=== PATIENT | male | born 1950 | race Caucasian/White ===

== ENCOUNTER 2016-10-05 09:59 | Outpatient (CLI) | payer MEDICARE ==
[~2016-10-05] VITALS: Ht 182.9 cm; Wt 92.7 kg
--- NOTE | ~2016-10-05 | HEMODYNAMI ---
PATIENT:LÓPEZ SCHMIDT MEDICAL RECORD: [id number] : 54 LOCATION:DM[facility]I ADMISSION DATE: 10/05/16 Generatedon:10/05/201613:19 Patient name: LÓPEZ SCHMIDT Patient #: [id number] SSN: [id number] : 1950 Date of study: 10/05/2016 Page: Of Hemodynamic Procedure Report Patient Data Patient Demographics Procedure consent was obtained First Name: LÓPEZ Gender: Male Last Name: ROXANA : 1950 [facility] Initial: AGGIE Age: 66 year(s) Patient #: [id number] Race: SSN: [id number] Additional ID: [id number] Contact details [address]: [address] [place] [address] State: [place] City: [place] Zip code: [address] Past Medical History Allergies: No known allergies Admission Admission Data Admission Date: 10/05/2016 Admission Time: 9:59 Arrival Date: 10/05/2016 Arrival Time: 12:00 Admit Source: Other Insurance Payor: Private health insurance Height (in.): 72 BSA: 2.15 (m2) Height (cm.): 182.88 BMI: 27.67 (kg/m2) Weight (lbs.): 204 Weight (kg.): 92.53 Lab Results Lab Result Date: 10/05/2016 Lab Result Time: 0:00 Biochemistry Name Units Result Min Max BUN mg/dl 15 --(--*-)-- 7 18 Creatinine mg/dl 1.1 --(--*-)-- 0.6 1.3 CBC Name Units Result Min Max Hemoglobin g/dl 16.8 --(---*)-- 13.5 17.5 Procedure Procedure Types Cath Procedure Diagnostic Procedure LHC LHC w/Coronaries w/Grafts PCI Procedure Coronary Stent Initial Procedure Description Procedure Date Procedure Date: 10/05/2016 Procedure Start Time: 13:03 Procedure End Time: 13:18 Procedure Staff Name Function Bryan Ovalle MD Performing Physician Alem Cobb RT Scrub Denisse Mason RN Nurse Mathieu Peña RT Monitor Markel Barraza RT Electrical Systems Drafter Procedure Data Cath Procedure Fluoroscopy Diagnostic fluoroscopy Total fluoroscopy Time: 3.6 time: 3.6 min min Diagnostic fluoroscopy Total fluoroscopy dose: 605 dose: 605 mGy mGy Contrast Material Contrast Material Type Amount (ml) Isovue 300 83 Entry Location Entry Primary Successful Side Size Upsize Upsize Entry Closure Succes sful Closure Location (Fr) 1 (Fr) 2 (Fr) Remarks Device Remarks Femoral Right 6 Fr Vascade artery Short Closure System Diagnostic catheters Device Type Used For End Catheter Placement Cordis 5Fr Pigtail LV Angiography Catheter (MP) Cordis 5Fr JL 4.0 Left Coronary Catheter (MP) Angiography Cordis 5Fr 3DRC Catheter SVG Angiography (MP) Cordis Infinity 5Fr AR 2 SVG Angiography MOD catheter Procedure Complications No complications Procedure Medications Medication Administration Route Dosage Oxygen NC 2 l/min Heparin Flush Bag added to field 2 bags (1000units/500ml NS) Lidocaine 2% added to field 20 Benadryl I.V. 50 mg Heparin Bolus I.V. 4000 units Versed I.V. 1 mg Fentanyl I.V. 50 mcg Versed I.V. 1 mg Fentanyl I.V. 50 mcg Versed I.V. 1 mg Fentanyl I.V. 50 mcg Versed I.V. 1 mg Fentanyl I.V. 50 mcg Versed I.V. 1 mg Hemodynamics Rest BSA: 2.15 (m2) HGB: 16.8 (g/dl) O2 Consumption: Estimated: 264.6 (ml/min) O2 Con sumption indexed: Estimated:123.07 (ml/min/m) Heart Rate: 87 (bpm) Snapshots Pre Cath Intra NCS Post Cath Vital Signs Time Heart Resp SPO2 NIBP Rhythm Pain Sedation Rate (ipm) (%) (mmHg) Status Level (bpm) 12:21:06 84 18 99 121/74(86) NSR 0 (11) 10(A) , No pain 12:25:16 59 20 99 115/67(80) NSR 0 (11) 10(A) , No pain 12:29:26 58 25 99 108/64(77) NSR 0 (11) 10(A) , No pain 12:33:33 66 23 99 103/61(74) NSR 0 (11) 10(A) , No pain 12:37:37 54 16 100 114/67(83) NSR 0 (11) 10(A) , No pain 12:41:47 55 18 98 113/60(78) NSR 0 (11) 10(A) , No pain 12:45:55 54 22 97 104/66(83) NSR 0 (11) 10(A) , No pain 12:50:00 64 22 97 94/58(74) NSR 0 (11) 10(A) , No pain 12:54:08 49 23 99 115/54(87) NSR 0 (11) 10(A) , No pain 12:58:18 63 21 96 100/62(76) NSR 0 (11) 10(A) , No pain 13:02:24 52 16 96 90/56(69) NSR 0 (11) 10(A) , No pain 13:06:28 58 16 97 104/62(85) NSR 0 (11) 10(A) , No pain 13:10:36 55 18 96 106/58(76) NSR 0 (11) 10(A) , No pain 13:14:17 82 17 96 100/57(75) NSR 0 (11) 10(A) , No pain 13:18:23 52 20 93 106/57(79) NSR 0 (11) 10(A) , No pain Medications Time Medication Route Dose Verified Delivered Reason Notes Effectiveness by by 12:20:58 Oxygen NC 2 Bryan Denisse Per physician l/min Yamile Mason RN 12:21:05 Heparin Flush added 2 Bryan Adams for local Bag to bags Yamile Ovalle MD anesthetic (1000units/500ml field NS) 12:21:12 Lidocaine 2% added 20ml Bryan Adams used for to vial Yamile Ovalle MD procedure field 12:21:19 Benadryl I.V. 50 mg Bryan Denisse Per physician Yamile Mason RN 13:01:42 Versed I.V. 1 mg Bryan Denisse for sedation Yamile Mason RN 13:01:43 Fentanyl I.V. 50 Bryan Denisse for sedation mcg Yamile Mason RN 13:03:16 Versed I.V. 1 mg Bryan Denisse for sedation Yamile Mason RN 13:03:24 Fentanyl I.V. 50 Bryan Denisse for sedation mcg Yamile Mason RN 13:05:31 Versed I.V. 1 mg Bryan Denisse for sedation Yamile Mason RN 13:05:35 Fentanyl I.V. 50 Bryan Denisse for sedation mcg Yamile Mason RN 13:07:42 Versed I.V. 1 mg Bryan Denisse for sedation Yamile Mason RN 13:07:54 Fentanyl I.V. 50 Bryan Denisse for sedation mcg Yamile Mason RN 13:09:05 Versed I.V. 1 mg Bryan Denisse for sedation Yamile Mason RN 13:10:09 Heparin Bolus I.V. 4000 Bryan Denisse for dose units Yamile Mason RN anticoagulation verified with dr ovalle Procedure Log Time Note 11:30:29 Markel Barraza RT(R) sent for patient. Start room use. 11:35:20 ACC Patient presents with Unstable Angina CCS Anginal Class 2--Slight limitation of ordinary activity. 11:35:27 Diagnostic Cath status Urgent 11:35:35 Time tracking: Regular hours 11:35:40 Plan of Care:Hemodynamics will remain stable., Cardiac rhythm will remain stable., Comfort level will be maintained., Respiratory function will remain adequate., Patient/ family verbilizes understanding of procedure., Procedure tolerated without complication., Recovers from procedure without complications.. 11:36:36 Patient allergic to No known allergies 11:42:31 Informed consent obtained and on chart 11:44:32 Arrival Date: 10/05/2016 12:00:00 PM 11:44:37 Admit Source: Other 11:44:40 Insurance Payor : Private health insurance 11:45:13 Patient Height : 182.88 cm 11:45:17 Patient Weight : 92.53 kg 12:15:35 Patient received from Outpatients to CCL 2 Alert and oriented. Tansferred to table in Supine position. 12:15:36 Warm blankets applied, and larry hugger turned on for patient comfort. 12:15:37 Correct patient and procedure confirmed by team. 12:15:37 ECG and BP/O2 sat monitors applied to patient. 12:18:10 H&P Date Dictated: 09/28/2016 Within 30 days and on chart., H&P Addendum completed by physician on day of procedure. (MUST COMPLETE FOR ALL OUTPATIENTS). 12:18:12 Pre-procedure instructions explained to patient. 12:18:12 Pre-op teaching completed and patient verbalized understanding. 12:18:15 Family in waiting room. 12:18:19 Patient NPO since Midnight. 12:18:21 Is the patient allergic to Iodine/contrast media? No. 12:18:23 Is patient on blood thinner?Yes 12:18:26 ACC The patient was administered the following blood thiners within the last 24 hours: ACCPlavix 12:18:28 Patient diabetic? No. 12:18:30 Previous problem with sedation/anesthesia? No ? 12:18:34 Snore? No 12:18:36 Sleep apnea? No 12:18:37 Deviated septum? No 12:18:37 Opens mouth fully? Yes 12:18:38 Sticks out tongue? Yes 12:18:40 Airway obstruction? No ? 12:18:43 Dentures? No ? 12:18:46 Pre procedure: right dorsailis pedis pulse 1+ Palpable, but thready & weak; easily obliterated 12:18:48 Patient pain scale 0/10 ?. 12:18:56 IV patent on arrival in left forearm with 0.9% NaCl at [facility]. 12:19:01 Lab results completed and on chart. 12:19:13 Right groin area was prepped with chlora-prep and draped in sterile fashion 12:19:19 Alarms reviewed by R. N. 12:19:19 Sharps counted by scrub and verified by R.N. 12:19:27 Use device set Femoral Dx 12:19:28 Tegaderm 4 x 4 opened to sterile field. 12:19:32 Acist Hand Control opened to sterile field. 12:19:32 Acist Manifold opened to sterile field. 12:19:33 Acist Syringe opened to sterile field. 12:19:34 Bag Decanter opened to sterile field. 12:19:34 Cardinal Cath Pack opened to sterile field. 12:19:35 St Tray 260cm J .035 wire opened to sterile field. 12:19:36 Cordis Infinity 5Fr Multipack catheter opened to sterile field. 12:19:44 Terumo 6Fr Clayton Sheath opened to sterile field. 12:19:59 Vital chart was started 12:20:00 Baseline sample Acquired. 12:20:04 Rhythm: sinus rhythm 12:20:08 Baseline sample Acquired. 12:20:51 Full Disclosure recording started 12:20:58 Oxygen 2 l/min NC was given by Denisse Mason RN; Per physician; 12:21:05 Heparin Flush Bag (1000units/500ml NS) 2 bags added to field was given by Bryan Ovalle MD; for local anesthetic; 12::12 Lidocaine 2% 20ml vial added to field was given by Bryan Ovalle MD; used for procedure; 12::19 Benadryl 50 mg I.V. was given by Denisse Mason RN; Per physician; 12::06 Lab Result : BUN 15 mg/dl 12::06 Lab Result : Creatinine 1.1 mg/dl 12:22:06 Lab Result : Hemoglobin 16.8 g/dl 12:30:57 Zero performed for pressure channel P1 13:01:40 --------ALL STOP TIME OUT------ 13:01:40 Final Timeout: patient, procedure, and site verified with staff and physician. All members of the team are in agreement. 13:01:42 Versed 1 mg I.V. was given by Denisse Mason RN; for sedation; 13:01:42 Right groin site verified by team. 13:01:43 Fentanyl 50 mcg I.V. was given by Denisse Mason RN; for sedation; 13:01:46 Physical assessment completed. ASA score P 2 - A patient with mild systemic disease as per Bryan Ovalle MD. 13:01:49 Sedation plan: IV Moderate Sedation Versed, Fentanyl 13:03:04 Procedure started. 13:03:16 Versed 1 mg I.V. was given by Denisse Mason RN; for sedation; 13:03:18 Local anesthetic to right femoral artery with Lidocaine 2% by Bryan Ovalle MD.INITIAL ACCESS ONLY 13:03:24 Fentanyl 50 mcg I.V. was given by Denisse Mason RN; for sedation; 13:03:26 A 6 Fr Short sheath was inserted into the Right Femoral artery 13:04:08 A Cordis 5Fr Pigtail Catheter (MP) was advanced over the wire and used for LV Angiography. 13:04:10 LV angiography performed. 13:04:12 LV gram done using ALVAREZ 13:04:25 EF : 40 % 13:04:30 Injector settings: Ml/sec: 10, Volume: 20, 13:04:33 Catheter removed. 13:04:42 A Cordis 5Fr JL 4.0 Catheter (MP) was advanced over the wire and used for Left Coronary Angiography. 13:05:18 LCA angiography performed. 13:05:19 Catheter removed. 13:05:26 A Cordis 5Fr 3DRC Catheter (MP) was advanced over the wire and used for SVG Angiography. 13:05:30 MARS to LAD angiography performed. 13:05:31 Versed 1 mg I.V. was given by Denisse Mason RN; for sedation; 13:05:35 Fentanyl 50 mcg I.V. was given by Denisse Mason RN; for sedation; 13:05:53 Togetheraisper J 300cm 0.014 guide wire opened to sterile field. 13:05:54 Diagnostic Biochips BasixCompak Inflation Kit opened to sterile field. 13:06:14 RCA angiography performed. 13:07:17 Catheter removed. 13:07:23 A Cordis Infinity 5Fr AR 2 MOD catheter was advanced over the wire and used for SVG Angiography. 13:07:42 Versed 1 mg I.V. was given by Denisse Mason RN; for sedation; 13:07:54 Fentanyl 50 mcg I.V. was given by Denisse Mason RN; for sedation; 13:08:11 SVG to Circ angiography performed. 13:08:16 SVG to Circ occluded. 13:08:20 SVG to RCA angiography performed. 13:08:43 Catheter removed. 13:09:05 Versed 1 mg I.V. was given by Denisse Mason RN; for sedation; 13:10:09 Heparin Bolus 4000 units I.V. was given by Denisse Mason RN; for anticoagulation; dose verified with dr ovalle 13:10:23 Cordis 6FR XBLAD 3.5 guide catheter opened to sterile field. 13:10:32 6 Fr XBLAD 3.5 guide catheter was inserted over the wire 13:10:35 WHISPER wire advanced. 13:11:20 Inflation Number: 1 A Medtronic Resolute 3.0 X 15 stent was prepped and advanced across the Mid CX. The stent was deployed at 13 RADHA for 0:09 (min:sec). 13:11:37 ACC Post-intervention DARIEL Flow is 3. 13:11:38 Stent catheter was removed intact over wire. 13:11:39 Wire removed. 13:11:39 Guide catheter removed. 13:11:50 ACC PCI Site: [facility] has 90% stenosis. 13:11:52 ACC Pre-intervention DARIEL Flow is 3. 13:12:01 Contrast amount:Isovue 300 83ml. 13:12:13 Sheath removed intact; hemostasis achieved with Vascade Closure System to the Right Femoral artery. 13:12:21 Fluoroscopy time 03.60 minutes. 13:12:26 Fluoroscopy dose: 605 mGy 13:12:26 Flurop Dose total: 605 13:12:27 Procedure ended.(Physican Out) 13:13:02 Vascade 6/7 Fr Closure Device opened to sterile field. 13:13:06 Insertion/operative site no bleeding no hematoma. 13:13:08 Post-op/insertion site Right Femoral artery dressed using a 4 x 4 and Tegaderm. 13:13:11 Post right femoral artery:stable 13:13:12 Post Procedure Pulses reassessed and unchanged 13:13:15 Post procedure rhythm: sinus rhythm 13:13:17 Post procedure instruction explained to patient.Patient verbalizes understanding. 13:13:22 Procedure and supply charges have been captured, reviewed, submitted and are correct. 13:13:35 Procedure type changed to Cath procedure, Diagnostic procedure, LHC, LHC w/Coronaries w/Grafts, PCI procedure, Coronary Stent Initial 13:16:26 Procedure Complication : No complications 13:18:09 Vital chart was stopped 13:18:09 See physician's report for complete and final results. 13:18:12 Report given to Post Procedure Room. 13:18:14 Patient transfered to Post Procedure Room with Stretcher. 13:18:17 Procedure ended. 13:18:17 Full Disclosure recording stopped 13:18:26 End room use (Document Last) Intervention Summary Intervention Notes Time ActionType Lesion and Equipment Action# Pressure Duration Attributes Used 13:11:20 Place stent Mid CX Medtronic 1 13 00:09 Resolute 3.0 X 15 stent Device Usage Item Name Manufacture Quantity Catalog Hospital Part Current Minima l Lot# / Number Charge Number Stock Stock Serial# Code Tegaderm 4 1 [id number] [id number] [id number] 5 x 4 Acist Hand Acist 1 73351 380853 878684 605253 5 Control Medical Systems Inc Acist Acist 1 87412 671229 391423 659292 5 Manifold Medical Systems Inc Acist Acist 1 35759 287269 745421 041953 20 Syringe Medical Systems Inc Bag Microtek 1 2002S 463341 74163 818950 5 Decanter MedaNext Inc. Cardinal Cardinal 1 [id number] 441901 31620 224774 [address] Tray St Tray 1 385450 202966 723414 374437 30 260cm J .035 wire Cordis Cardinal 1 [id number] 220892 02273 233492 30 Openovate Labs Health 5Fr Multipack catheter Terumo 6Fr Terumo 1 [id number] 127886 930240 587843 40 Clayton Sheath Cordis 5Fr Cardinal 1 230727 5 Pigtail Health Catheter (MP) Cordis 5Fr Cardinal 1 366097 5 JL 4.0 Health Catheter (MP) Cordis 5Fr Cardinal 1 487970 5 3DRC Health Catheter (MP) Miranda Miranda 1 [id number] 562302 497890 332113 5 Whisper J Vascular 300cm 0.014 guide wire Merit Merit 1 [id number] 333362 591154 833212 15 [employer] Catering Equipment Medical Inflation Kit Cordis Cardinal 1 [id number] 557924 183450 498707 20 Infinity Health 5Fr AR 2 MOD catheter Cordis 6FR Cardinal 1 [id number] 036163 299916 018495 10 XBLAD 3.5 Health guide catheter Medtronic Medtronic 1 [id number] 504799 412956 3 [id number] Resolute 3.0 X 15 stent Vascade 6/7 Cardiva 1 [id number] 533531 703579 542372 5 Fr Closure Medical, Device Inc. Signature Audit [place] Stage Time Signature Unsigned Intra-Procedure 10/05/2016 Mathieu Peña 1:19:22 PM RT(R) Signatures Monitor : Mathieu Peña RT Signature : Date : Time : [facility] [address] [place] [address]
[2016-10-05] MEDS ORDERED: PLAVIX75 MG PO (11:39)
[2016-10-05 11:43] LABS: BASOPHILS 0.2 % (0.0-2.0); EOSINOPHILS 2.5 % (0-7); HEMATOCRIT 47.8 % (42.0-54.0); HEMOGLOBIN 16.8 g/dL (13.5-17.5); IMMATURE GRANULOCYTES 0.2 % (0-5); LYMPHOCYTES 29.7 % (15-50); MCH 32.2 pg (26.0-34.0); MCHC 35.1 g/dL (31.0-37.0); MCV 91.7 fL (80.0-100.0); MEAN PLATELET VOLUME 10.3 fL (7.4-10.4); MONOCYTES 7.8 % (2-11); NEUTROPHILS 59.6 % (40-80); PLATELET COUNT 142 10x3/uL (130-400); RBC 5.21 10x6/uL (4.20-6.10); RDW 13.2 % (11.5-14.5); WBC 8.5 10x3/uL (4.8-10.8)
[2016-10-05] MEDS ORDERED: LISINOPRIL5 MG PO (11:49)
[2016-10-05] MEDS ORDERED: ISOSORBIDE MONO60 M1 PO (11:49)
[2016-10-05] MEDS ORDERED: LIPITOR80 MG PO (11:49)
[2016-10-05] MEDS ORDERED: TOPROL XL50 MG PO (11:50)
[2016-10-05 11:51] LABS: ANION GAP 15.1 mmol/L (8-16); CALCIUM 9.4 mg/dL (8.5-10.1); CARBON DIOXIDE 27.1 mmol/L (21.0-32.0); CREATININE - SERUM 1.1 mg/dL (0.6-1.3); POTASSIUM - SERUM 4.2 mmol/L (3.5-5.1)
[2016-10-05] MEDS ORDERED: AMOXICILLIN500 M1 PO (11:51)
[2016-10-05] MEDS ORDERED: TOPROL XL100 MG PO (11:51)
[2016-10-05 11:53] VITALS: BP 114/63; Ht 182.9 cm; Wt 92.7 kg
--- NOTE | 2016-10-05 14:49 | NUR ---
1335 BACK FROM HEART CATH PTCA TO GRAFT. RT GROIN DRESSING C/D/I NO BLEEDING OR HEMATOMA PPX2 RT STRONGER THAN LEFT AND INSTRUCTED NOT TO MOVE RT LEG X 4 HOURS. PRESENT.
--- NOTE | 2016-10-05 16:07 | NUR ---
1405 RT GROIN DRESSING C/D/I NO BLEEDING PPX2 RT AND LT RT WEAKER THAN LEFT.
--- NOTE | 2016-10-05 16:08 | NUR ---
1450 RESTING AND DOZING BUT EASILY ROUSES AND REMINDED NOT TO MOVE RT LEG BUT CAN MOVE LEFT LEG. PPX2 RT AND LT RT WEAKER THAN LEFT.
--- NOTE | 2016-10-05 18:47 | NUR ---
1520 HAD AN ANXIETY ATTACK AND GOT HOT FELT CLAUSTRAPHOPIC REASSURED PATIENT HE WAS OKAY. BLANKETS REMOVED TOLD PATIENT COULD BEND LEFT LEG AND MUCH BETTER AFTER THAT.
--- NOTE | 2016-10-05 18:48 | NUR ---
1650 HOB ELEVATED SOME.
--- NOTE | 2016-10-05 18:48 | NUR ---
1700 UP TO BR AND VOIDED AND RT GROIN NO BLEEDING. IV DCD AND CATHETER INTACT. WENT OVER DISCHARGE INSTRUCTIONS AND VERBALLY UNDERSTANDS. WENT OVER FOLLOW UP APPOINTMENT CONTINUE HOME MEDS AND POST CATH INSTRUCTIONS. VERBALLY UNDERSTANDS.
--- NOTE | 2016-10-05 18:51 | NUR ---
1720 TO HOME VIA W/C WITH .
--- NOTE | 2016-10-06 11:11 | OP ---
PATIENT NAME: LÓPEZ SCHMIDT MEDICAL RECORD: [id number] :54 LOCATION:D.CAT ADMISSION DATE: SURGEON: EDVIN WINSTON MD DATE OF OPERATION: 10/05/2016 PROCEDURES: 1. PTCA, stent left circumflex. 2. Left heart catheterization. 3. Selective coronary angiography. 4. Vein graft angiography. 5. MARS angiography. 6. Left ventriculogram. INDICATION: Angina and coronary artery disease. PROCEDURE IN DETAIL: After informed consent was obtained and after detailed explanation of risks, benefits, as well as alternative therapies, the patient elected to proceed with angiogram and angioplasty. The right femoral area was prepped and draped in normal sterile fashion. The right femoral artery was cannulated via modified Seldinger technique with placement of 6-Estonian sheath. All catheters exchanged through this sheath. FINDINGS: The left ventriculogram was performed in the standard 30-degree ALVAREZ view reveals good cardiac wall motion throughout all segments. Overall ejection fraction estimated 60%. SELECTIVE CORONARY ANGIOGRAPHY: 1. Left main showed no significant angiographic disease. 2. Left anterior descending is totally occluded. 3. MARS to the LAD is widely patent. 4. Left circumflex has a 90+ percent stenosis proximally. 5. Vein graft to the circumflex is closed. 6. The right coronary has multiple areas of 80% stenosis. 7. Vein graft to the right coronary is widely patent. PTCA STENT OF THE HOH LEFT CIRCUMFLEX: The stent used was a 3.0 x 15 mm Resolute. Result was 0% residual stenosis. OVERALL IMPRESSION: Successful percutaneous transluminal coronary angioplasty stent of the left circumflex going from 90% initial stenosis with a closed graft to 0% residual. TRANSINT:[id number] Voice Confirmation ID: [id number] DOCUMENT ID: [id number] EDVNI WINSTON MD at 1111 CC: [id number] DICTATION DATE: 10/05/16 1315 INVENTORY TRANSCRIBER: 10/05/16 1334 DEP CLI 10/05/16 [place] [id number]
== END 2016-10-05 17:20 | disposition home or self-care (01) ==
LOC: D.CATH 09:59
PROVIDERS: Internal Medicine Interventional Cardiology
DX: I25.119 Atherosclerotic heart disease of native coronary artery with unspecified angina pectoris (principal)
CPT/HCPCS: 93459; C9600

== ENCOUNTER 2018-10-03 08:25 | Observation (INO) | payer MEDICARE ==
[~2018-10-03] VITALS: Ht 182.9 cm; Wt 90.9 kg
[2018-10-03] VITALS (10 sets, daily range): BP systolic 107–134; BP diastolic 61–70
--- NOTE | ~2018-10-03 | OP ---
PATIENT NAME: LÓPEZ SCHMIDT MEDICAL RECORD: [id number] :54 LOCATION:PATI [facility] ADMISSION DATE:10/03/18 SURGEON: KANDY ROSARIO MD DATE OF OPERATION: 10/04/2018 PROCEDURES: Left heart catheterization, selective coronary angiography, right femoral artery approach. CATHETERS: A 5-Sinhala sheath, 5/4 left and right Brando, 5/4 pig. The procedure was well tolerated. The patient returned to carvajal. Sheath removed. ExoSeal device placed. FINDINGS: Left ventriculography in 30-degree ALVAREZ view shows global hypokinesis. Overall LV systolic function is reduced, 30% to 35%. CORONARY ANATOMY: LEFT MAIN: Left main is free of disease. LAD: Fills for a short period of time and is seen filling via competitive flow. CIRCUMFLEX: Area of previous placed stent is widely patent. No progression of quinault disease. RIGHT CORONARY ARTERY: Fills for a short period of time and is totally occluded. BYPASS GRAFTS: 1. MARS to LAD widely patent throughout its course without evidence of post-anastomotic stenosis. 2. Saphenous vein graft to right is widely patent throughout its course without evidence of post-anastomotic stenosis. IMPRESSION: Cardiomyopathy in excess of underlying ischemic disease. We will start ARB. May consider addition of aldosterone inhibition in the near future. TRANSINT:[id number] Voice Confirmation ID: [id number] DOCUMENT ID: [id number] KANDY ROSARIO MD CC: [id number] DICTATION DATE: 10/04/18 0917 BANKRUPTCY JUDGE: 10/04/18 1155 DIS IN 10/04/18 [facility] [address] [place] [address]
--- NOTE | ~2018-10-03 | HEMODYNAMI ---
PATIENT:LÓPEZ SCHMIDT MEDICAL RECORD: [id number] : 54 LOCATION:[facility] D.2119 ADMISSION DATE: 10/03/18 Generatedon:10/04/20189:14 Patient name: LÓPEZ SCHMIDT Patient #: [id number] SSN: [id number] : 1950 Date of study: 10/04/2018 Page: Of Hemodynamic Procedure Report Patient Data Patient Demographics Procedure consent was obtained First Name: LÓPEZ Gender: Male Last Name: ROXANA : 1950 Middle Initial: AGGIE Age: 68 year(s) Patient #: [id number] Race: SSN: [id number] Additional ID: [id number] Contact details [address]: [address] [place] [address] [address]IVE State: [place] City: [place] Zip code: [address] Past Medical History Allergies Allergen Reaction Date Comments Reported Other allergy 10/04/2018 ASA Admission Admission Data Admission Date: 10/03/2018 Admission Time: 10:43 Room #: D.2119 Weight (lbs.): 200.62 Weight (kg.): 91 Lab Results Lab Result Date: 10/04/2018 Lab Result Time: 0:00 Biochemistry Name Units Result Min Max BUN mg/dl 10 --(-*--)-- 7 18 Creatinine mg/dl 1 --(--*-)-- 0.6 1.3 CBC Name Units Result Min Max Hemoglobin g/dl 17.8 --(----)*- 13.5 17.5 Procedure Procedure Types Cath Procedure Diagnostic Procedure LHC LHC w/Coronaries w/Grafts Procedure Description Procedure Date Procedure Date: 10/04/2018 Procedure Start Time: 9:04 Procedure End Time: 9:13 Procedure Staff Name Function Nato Sheppard MD Performing Physician Markel Barraza RT Monitor Any Gonzalez RT Scrub Rolando Hanna RN Nurse Saleem Temple RN Breakdown Worker Procedure Data Cath Procedure Fluoroscopy Diagnostic fluoroscopy Total fluoroscopy Time: 1.5 time: 1.5 min min Diagnostic fluoroscopy Total fluoroscopy dose: 448 dose: 448 mGy mGy Contrast Material Contrast Material Type Amount (ml) Isovue 300 62 Entry Location Entry Primary Successful Side Size Upsize Upsize Entry Closure Succes sful Closure Location (Fr) 1 (Fr) 2 (Fr) Remarks Device Remarks Femoral Right 5 Fr Exoseal artery Estimated blood loss: 10 ml Diagnostic catheters Device Type Used For End Catheter Placement MULTIPACK JL 4.0 5Fr Procedure catheter MULTIPACK 3DRC 5Fr Procedure catheter MULTIPACK Pigtail 5 Fr Procedure catheter Procedure Complications No complications Procedure Medications Medication Administration Route Dosage 0.9% NaCl I.V. 100 ml/hr Oxygen etCO2 Nasal cannula 2 l/min Heparin Flush Bag added to field 2 bags (1000units/500ml NS) Lidocaine 2% added to field 20 Versed I.V. 2 mg Fentanyl I.V. 100 mcg Versed I.V. 1 mg Hemodynamics Rest HGB: 17.8 (g/dl) Heart Rate: 59 (bpm) Pressure Samples Time Site Value (mmHg) Purpose Heart Use Rate(bpm) 9:05 AO 119/69(83) Snapshot 70 9:09 LV 126/7,7 Snapshot 56 9:09 AO 161/127(90) Pullback 65 9:09 LV 121/4,9 Pullback 65 Gradients Valve Time Site 1 Site 2 Mean SEP/DFP Peak To Heart Use (mmHg) (sec/min) Peak Rate (mmHg) (bpm) Aortic 9:09 LV AO 0 10 0 65 121/4,9 161/127(90) Calculations Valve P-P Mean Valve Index Valve Source Name Gradient Area Flow (cm2) Aortic 0 0 0 0 Snapshots Pre Cath Intra NCS Post Cath Vital Signs Time Heart Resp SPO2 etCO2 NIBP (mmHg) Rhythm Pain Sedation Rate (ipm) (%) (mmHg) Status Level (bpm) 8:52:30 53 22 96 0 130/74(98) NSR 0 (11) 10(A) , No pain 8:56:40 56 19 97 12.1 123/74(101) NSR 0 (11) 10(A) , No pain 9:00:46 55 19 96 27.2 127/77(100) NSR 0 (11) 10(A) , No pain 9:04:54 55 18 96 25.7 130/74(89) NSR 0 (11) 9(A) , No pain 9:09:04 57 18 97 12.8 131/70(101) NSR 0 (11) 10(A) , No pain Medications Time Medication Route Dose Verified Delivered Reason Notes Effe ctiveness by by 8:48:19 0.9% NaCl I.V. 100 Rolando Rolando Per ml/hr Cyndi Hanna physician RN RN 8:48:29 Oxygen etCO2 2 Rolando Rolando Per Nasal l/min Cyndi Hanna physician cannula RN RN 8:48:42 Heparin Flush added 2 Rolando Rolando used for Bag to bags Lorigan Lorigan procedure (1000units/500ml field RN RN NS) 8:48:54 Lidocaine 2% added 20ml Rolando Rolando for local to vial Lorigan Lorigan anesthetic field RN RN 9:01:06 Versed I.V. 2 mg Rolando Rolando for Lorigan Lorigan sedation RN RN 9:01:14 Fentanyl I.V. 100 Rolando Rolando for mcg Lorigan Lorigan sedation RN RN 9:04:26 Versed I.V. 1 mg Rolando Rolando for Lorigan Lorigan sedation RN scrap handler Log Time Note 8:26:02 Patient Weight : 200.62 lbs 8:26:30 Lab Result : Hemoglobin 17.8 g/dl 8:26:30 Lab Result : Creatinine 1 mg/dl 8:26:30 Lab Result : BUN 10 mg/dl 8:30:31 Markel Barraza RT(R) sent for patient. Start room use. 8:30:32 Time tracking: Regular hours (M-F 7:00 - 5:00) 8:30:36 Plan of Care:Hemodynamics will remain stable., Cardiac rhythm will remain stable., Comfort level will be maintained., Respiratory function will remain adequate., Patient/ family verbilizes understanding of procedure., Procedure tolerated without complication., Recovers from procedure without complications.. 8:44:53 Patient received from Med II to [facility] 2 Alert and oriented. Tansferred to table in Supine position. 8:44:54 Warm blankets applied, and larry hugger turned on for patient comfort. 8:44:56 Correct patient and procedure confirmed by team. 8:44:58 Signed procedure consent form obtained from patient. 8:45:00 ECG and BP/O2 sat monitors applied to patient. 8:45:06 H&P Date Dictated: 10/03/2018 Within 30 days and on chart., H&P Addendum completed by physician on day of procedure. (MUST COMPLETE FOR ALL OUTPATIENTS). 8:45:08 Pre-procedure instructions explained to patient. 8:45:10 Family in patients room. 8:45:12 Patient NPO since Midnight. 8:45:25 Patient allergic to Other allergyASA 8:45:28 Is the patient allergic to Iodine/contrast media? No. 8:45:30 Is patient on blood thinner?Yes 8:45:34 ACC The patient was administered the following blood thiners within the last 24 hours: ACCPlavix 8:45:36 Patient diabetic? No. 8:45:42 Snore? Yes 8:45:45 Sleep apnea? No 8:45:46 Deviated septum? No 8:45:47 Opens mouth fully? Yes 8:45:48 Sticks out tongue? Yes 8:45:52 Dentures? No ? 8:45:56 Patient pain scale 0/10 ?. 8:46:02 IV patent on arrival in left forearm with 0.9% NaCl at [facility]. 8:46:06 Lab results completed and on chart. 8:46:24 Right groin area was prepped with chlora-prep and draped in sterile fashion 8:46:25 Alarms reviewed by R. N. 8:46:26 Sharps counted by scrub and verified by R.N. 8:46:27 Physician paged 8:48:19 0.9% NaCl 100 ml/hr I.V. was administered by Rolando Hanna RN; Per physician; 8:48:29 Oxygen 2 l/min etCO2 Nasal cannula was administered by Rolando Hanna RN; Per physician; 8:48:42 Heparin Flush Bag (1000units/500ml NS) 2 bags added to field was administered by Rolando Hanna RN; used for procedure; 8:48:54 Lidocaine 2% 20ml vial added to field was administered by Rolando Hanna RN; for local anesthetic; 8:51:20 Vital chart was started 8:51:21 Baseline sample Acquired. 8:51:28 Rhythm: sinus bradycardia 8:51:29 Full Disclosure recording started 8:51:36 Use device set Femoral Dx 8:51:37 Tegaderm 4 x 4 (1626W) opened to sterile field. 8:51:38 ACIST Manifold (58147) opened to sterile field. 8:51:39 ACIST Hand Control (92434) opened to sterile field. 8:51:40 ACIST Syringe (86109) opened to sterile field. 8:51:41 Bag Decanter (2002S) opened to sterile field. 8:51:41 Medline Cath Pack ([id number]) opened to sterile field. 8:51:42 DIAGNOSTIC WIRE .035 260cm J wire (178541) opened to sterile field. 8:51:43 DIAGNOSTIC Multipack 5Fr catheter set ([id number]) opened to sterile field. 8:51:44 SHEATH 5FR Bevier ([id number]) opened to sterile field. 9:00:40 --------ALL STOP TIME OUT------ 9:00:41 Final Timeout: patient, procedure, and site verified with staff and physician. All members of the team are in agreement. 9:00:43 Right groin site verified by team. 9:00:46 Physical assessment completed. ASA score P 2 - A patient with mild systemic disease as per Nato Sheppard MD. 9:00:49 Sedation plan: IV Moderate Sedation Medication:Versed, Fentanyl 9:01:06 Versed 2 mg I.V. was administered by Rolando Hanna RN; for sedation; 9:01:14 Fentanyl 100 mcg I.V. was administered by Rolando Hanna RN; for sedation; 9:03:59 Procedure started. 9:04:02 Local anesthetic to right femoral artery with Lidocaine 2% by Nato Sheppard MD.INITIAL ACCESS ONLY 9:04:22 A 5 Fr sheath was inserted into the Right Femoral artery 9:04:26 Versed 1 mg I.V. was administered by Rolando Hanna RN; for sedation; 9:04:27 A MULTIPACK JL 4.0 5Fr catheter was advanced over the wire and used for Procedure. 9:05:27 LCA angiography performed. 9:05:32 Catheter removed. 9:05:36 A MULTIPACK 3DRC 5Fr catheter was advanced over the wire and used for Procedure. 9:06:25 RCA angiography performed. 9:06:53 SVG to RCA angiography performed. 9:07:50 SVG to Circ occluded. 9:07:56 MARS to LAD angiography performed. 9::57 Catheter removed. 9:08:06 A MULTIPACK Pigtail 5 Fr catheter was advanced over the wire and used for Procedure. 9:09:22 LV angiography performed. 9::23 LV gram done using ALVAREZ 9:09:28 EF : 30 % 9:09:29 LV hemodynamics recorded. 9::35 Injector settings: Ml/sec: 7, Volume: 15, 9::42 Catheter removed. 9:09:43 EXOSEAL 5Fr (EX500) opened to sterile field. 9:10:05 Sheath removed intact; hemostasis achieved with Exoseal to the Right Femoral artery. 9:10:31 Procedure ended.(Physican Out) 9:10:56 Fluoroscopy time 01.50 minutes. 9:11:04 Fluoroscopy dose: 448 mGy 9:11: Flurop Dose total: 448 9:11:08 Contrast amount:Isovue 300 62ml. 9:11:10 Sharps counted by scrub and verified by R.N. 9:11:11 Insertion/operative site no bleeding no hematoma. 9:11:15 Post-op/insertion site Right Femoral artery dressed using a 4 x 4 and Tegaderm. 9:11:16 Post Procedure Pulses reassessed and unchanged 9:11:26 Post-procedure physical assessment completed. ASA score P 2 - A patient with mild systemic disease as per Nato Sheppard MD. 9:11:28 Post procedure rhythm: unchanged. 9:11:30 Estimated blood loss: 10 ml 9:11:32 Post procedure instruction explained to patient.Patient verbalizes understanding. 9:11:32 Patient needs reinforcement of post procedure teaching. 9:11:37 Procedure and supply charges have been captured, reviewed, submitted and are correct. 9:11:39 Procedure Complication : No complications 9:11:54 Vital chart was stopped 9:11:54 See physician's report for complete and final results. 9:13:51 Report given to Pre/Post Procedure Room. 9:13:55 Patient transfered to Pre/Post Procedure Room with Stretcher. 9:13:57 Procedure ended. 9:13:57 Full Disclosure recording stopped 9:14:34 End room use (Document Last) Device Usage Item Name Manufacture Quantity Catalog Hospital Part Current Minimal L ot# / Number Charge Number Stock Stock Serial# Code Tegaderm 4 3M 1 1626W [id number] [id number] 5 x 4 (1626W) ACIST Acist 1 58406 768972 276359 984812 5 Manifold Medical (87602) Systems Inc ACIST Hand Acist 1 31117 653482 593075 226997 5 Control Medical (14161) Systems Inc ACIST Acist 1 64057 896217 808055 090995 20 Syringe Medical (56443) Systems Inc Bag Microtek 1 2001S 596098 48038 974662 5 Decanter Medical Inc. (2001S) Medline Medline 1 [id number] 143004 63275 777770 5 Cath Pack ([id number]) DIAGNOSTIC St Tray 1 508654 705064 954554 069063 30 WIRE .035 260cm J wire (353993) DIAGNOSTIC Cardinal 1 IG5095 688267 46000 950131 30 Multipack Health 5Fr catheter set (KB3154) SHEATH 5FR Terumo 1 [id number] 363159 609112 002677 5 Bevier (XFV748) MULTIPACK Cardinal 1 249327 5 JL 4.0 5Fr Health catheter MULTIPACK Cardinal 1 468497 5 3DRC 5Fr Health catheter MULTIPACK Cardinal 1 556253 5 Pigtail 5 Health Fr catheter EXOSEAL 5Fr Cardinal 1 EX500 642703 190558 880682 10 (EX500) Health Signature Audit [place] Stage Time Signature Unsigned Intra-Procedure 10/04/2018 Markel Barraza 9:14:50 AM RT(R) Signatures Monitor : Markel Barraza RT Signature : Date : Time : [place] [id number] [place] [address]
[~2018-10-03 08:25] MED LIST: AMOXICILLIN500 M1 PO; ISOSORBIDE MONO60 M1 PO; LIPITOR80 MG PO; LISINOPRIL5 MG PO; PLAVIX75 MG PO; TOPROL XL100 MG PO; TOPROL XL50 MG PO
[2018-10-03] MEDS ORDERED: LEXAPRO10 MG PO (08:40)
[2018-10-03] MEDS ORDERED: METOPROLOL (08:40)
--- NOTE | 2018-10-03 09:06 | NUR ---
ASA NOT GIVEN DUE TO PT ALLERGY.
[2018-10-03 09:07] LABS: HEMATOCRIT 48.5 % (42.0-54.0); HEMOGLOBIN 17.8 g/dL (13.5-17.5); LYMPHOCYTES 27.5 % (15-50); MCH 33.6 pg (26.0-34.0); MCHC 36.7 g/dL (31.0-37.0); MCV 91.7 fL (80.0-100.0); MEAN PLATELET VOLUME 8.8 fL (7.4-10.4); NEUTROPHILS 65.7 % (40-80); PLATELET COUNT 166 10x3/uL (130-400); RBC 5.29 10x6/uL (4.20-6.10); RDW 13.2 % (11.5-14.5); WBC 6.9 10x3/uL (4.8-10.8)
[2018-10-03 09:21] LABS: ALBUMIN 3.5 g/dL (3.4-5.0); ALKALINE PHOSPHATASE 66 U/L (46-116); ALT (SGPT) 23 U/L (10-68); BILIRUBIN - TOTAL 1.53 mg/dL (0.2-1.3); CALC OSMOLALITY 279 mosm/kg (275-300); CALCIUM 8.5 mg/dL (8.5-10.1); CARBON DIOXIDE 27.2 mmol/L (21.0-32.0); CHLORIDE - SERUM 106 mmol/L (98-107); GLUCOSE 97 mg/dL (74-106); PROTEIN - SERUM 6.3 g/dL (6.4-8.2); SODIUM 141 mmol/L (136-145); UREA NITROGEN 10 mg/dL (7-18); eGFR NON AFRICAN AMERICAN 79 mL/min (90-120)
--- NOTE | 2018-10-03 09:23 | NUR ---
PT RATED CP 3/10 PRIOR TO SL NITRO, CURRENTLY RATES CP 1/10. PT DECLINED SECOND PRN NITRO. SITTING IN SEMI-PYLE'S, RESPIRATIONS EVEN AND UNLABORED. NO SIGNS OF DISTRSS. CALL LIGHT IN REACH, WILL CONTINUE TO MONITOR.
[2018-10-03 09:24] LABS: APTT 34.7 SECONDS (22.8-39.4); INR 1.07 (0.85-1.17); PROTIME 13.4 SECONDS (11.6-15.0)
[2018-10-03 09:32] LABS: CKMB 1.8 U/L (0.0-3.6); CREATINE KINASE 94 UL (21-232); MAGNESIUM - SERUM 1.9 mg/dL (1.8-2.4); TROPONIN-I < 0.017 ng/mL (0.000-0.060)
[2018-10-03 09:39] LABS: AMYLASE - SERUM 40 U/L (25-115); LIPASE 119 U/L (73-393)
--- NOTE | 2018-10-03 10:24 | NUR ---
OCCULT BLOOD STOOL NEGATIVE. ERP NOTIFIED. PT RESTING IN BED. RESPIRATIONS UNLABORED.
[2018-10-03 11:45] LABS: CKMB 1.8 U/L (0.0-3.6); CREATINE KINASE 89 UL (21-232); TROPONIN-I < 0.017 ng/mL (0.000-0.060)
--- NOTE | 2018-10-03 12:10 | NUR ---
PT GIVEN AHA LUNCH TRAY, PER DIETARY ORDERS.
--- NOTE | 2018-10-03 15:44 | NUR ---
PT RESTING COMFORTABLY. DENIES PAIN. UP TO AMBULATE TO REST ROOM. DENIES NEEDS AT THIS TIME.
--- NOTE | 2018-10-03 15:56 | NUR ---
DR. PEREZ CONTACTED TO DOSE CLARIFICATION ON PLAVIX. VERBAL ORDER RECEIVED TO MODIFY PLAVIX TO 300MG AND VERBAL ORDER ALSO OBTAINED FOR NICOTINE PATCH PER PT REQUEST. ORDERS PLACED ACCORDINGLY.
[2018-10-03 17:14] LABS: CKMB 1.1 U/L (0.0-3.6); CREATINE KINASE 79 UL (21-232)
[2018-10-03 17:15] LABS: TROPONIN-I < 0.017 ng/mL (0.000-0.060)
--- NOTE | 2018-10-03 19:03 | NUR ---
RECIEVED REPORT FROM ER.
--- NOTE | 2018-10-03 19:07 | NUR ---
DEPT TEMP 98.9 TC
--- NOTE | 2018-10-03 19:22 | NUR ---
RECIEVED TO ROOM 2118 FROM ER VIA W.C. PT A&O. RESPERATONS EVEN ON RA. VITALS STABLE. IV TO LEFT ARM WITH NS INFUSING AT 125 CC/HR, SITE CLEAN AND DRY. HISTORY AND MED REC OBTAINED, PLACED ON TELEMETRY, 58 SB PER MT. PT CURRENTLY DENIES PAIN OR NEEDS. AT BED SIDE.
[2018-10-03] MEDS ORDERED: METOPROLOL TART50 MG PO ×2 (20:29→20:30)
[2018-10-03 23:33] LABS: CKMB 0.9 U/L (0.0-3.6); CREATINE KINASE 78 UL (21-232); TROPONIN-I < 0.017 ng/mL (0.000-0.060)
--- NOTE | 2018-10-04 03:53 | NUR ---
RN NOTE: PATIENT RESTING COMFORTABLY IN BED. RESPIRATIONS ARE EVEN AND UNLABORED. NO S/S OF DISTRESS. NO C/O PAIN. CALL LIGHT WITHIN REACH. WILL CPOC.
[2018-10-04 04:00] VITALS: BP 129/75
--- NOTE | 2018-10-04 04:23 | NUR ---
RESTING WITH EYES CLOSED, RESPERATIONS EVEN, NO S/S DISTRESS NOTED.
[2018-10-04 06:06] VITALS: BP 127/61; Ht 182.9 cm; Wt 90.9 kg
[2018-10-04 06:33] LABS: BASOPHILS 0.4 % (0-2); HEMATOCRIT 51.8 % (42.0-54.0); HEMOGLOBIN 18.5 g/dL (13.5-17.5); IMMATURE GRANULOCYTES 0.3 % (0-5); MCH 33.4 pg (26.0-34.0); MCHC 35.7 g/dL (31.0-37.0); MCV 93.5 fL (80.0-100.0); MEAN PLATELET VOLUME 10.3 fL (7.4-10.4); MONOCYTES 8.5 % (2-11); NEUTROPHILS 57.8 % (40-80); PLATELET COUNT 149 10x3/uL (130-400); RBC 5.54 10x6/uL (4.20-6.10); RDW 13.3 % (11.5-14.5); WBC 7.5 10x3/uL (4.8-10.8)
[2018-10-04 06:38] LABS: ALBUMIN 3.5 g/dL (3.4-5.0); ALKALINE PHOSPHATASE 61 U/L (46-116); ALT (SGPT) 22 U/L (10-68); BILIRUBIN - TOTAL 1.35 mg/dL (0.2-1.3); CALC OSMOLALITY 279 mosm/kg (275-300); CALCIUM 8.5 mg/dL (8.5-10.1); CARBON DIOXIDE 26.3 mmol/L (21.0-32.0); CHLORIDE - SERUM 107 mmol/L (98-107); CREATININE - SERUM 0.9 mg/dL (0.6-1.3); GLUCOSE 99 mg/dL (74-106); POTASSIUM - SERUM 3.9 mmol/L (3.5-5.1); PROTEIN - SERUM 6.4 g/dL (6.4-8.2); SODIUM 141 mmol/L (136-145); UREA NITROGEN 11 mg/dL (7-18); eGFR NON AFRICAN AMERICAN 90 mL/min (90-120)
--- NOTE | 2018-10-04 09:00 | NUR ---
PRE-OPS GIVEN. TO ELEVATOR PILOT BY BED.
[2018-10-04 09:02] VITALS: BP 129/87
--- NOTE | 2018-10-04 09:40 | NUR ---
2L NC, NO RESP DISTRESS. RIGHT GROIN 5F EXOSEAL CDI, NO BLEEDING OR HEMATOMA NOTED. NO C/O PAIN OR NAUSEA. VSS. CALL LIGHT WITHIN REACH.
--- NOTE | 2018-10-04 10:10 | NUR ---
RESTING COMFORTABLY WITH NO C/O. RIGHT GROIN 5F EXOSEAL CDI, NO BLEEDING OR HEMATOMA NOTED. VSS. WILL CONTINUE TO MONITOR.
--- NOTE | 2018-10-04 10:35 | NUR ---
HOB ELEVATED 30 DEGREES. RIGHT GROIN 5F EXOSEAL CDI, NO BLEEDING NOTED. SIPPING ON DRINK AND EATING SOUP WITH NO NAUSEA. VSS. WILL CONTINUE TO MONITOR.
[2018-10-04] MEDS ORDERED: DIOVAN80 MG PO (11:10)
--- NOTE | 2018-10-04 11:15 | NUR ---
LEFT PIV D/C'D WITH CATHETER INTACT, BAND AID TO SITE. UP TO BEDSIDE TO GET DRESSED. AMBULATED TO RESTROOM.
--- NOTE | 2018-10-04 11:25 | NUR ---
DISCHARGE INSTRUCTIONS GIVEN, VERBALIZED UNDERSTANDING. PRESCRIPTION FOR VALSARTAN ALSO GIVEN.
--- NOTE | 2018-10-04 11:35 | NUR ---
TAKEN OUT VIA WHEELCHAIR BY CATH LEVEL VIAL GRINDER. LEFT FACILITY WITH FAMILY AND ALL PERSONAL BELONGINGS.
== END 2018-10-04 11:35 | disposition home or self-care (01) ==
LOC: D.ER 08:25 → D.EDHOLD 10:43 → D.CLR 10:43 → D.M2 18:14 → OBSVTIME 19:22 → D.CLR 10-04 09:20
PROVIDERS: Family Medicine; ADMIT Family Medicine
DX: I42.9 Cardiomyopathy, unspecified (principal); I25.119 Atherosclerotic heart disease of native coronary artery with unspecified angina pectoris; I10 Essential (primary) hypertension; E78.5 Hyperlipidemia, unspecified; K92.1 Melena; F17.200 Nicotine dependence, unspecified, uncomplicated

== ENCOUNTER → 2019-03-14 13:27 | Outpatient (CLI) | payer MEDICARE ==
[2018-10-04 06:06] VITALS: BMI 27.2
[~2019-03-14 13:27] MED LIST changes: +DIOVAN80 MG PO; +LEXAPRO10 MG PO; +METOPROLOL; +METOPROLOL TART50 MG PO
--- NOTE | 2019-03-14 14:40 | NUR ---
TIME OUT FOR LT SHOULDER ARTHROGRAM WAS AT 1425 HRS
== END | disposition home or self-care (01) ==
LOC: D.RAD 13:27
PROVIDERS: ATTEND Orthopaedic Surgery
DX: M75.122 Complete rotator cuff tear or rupture of left shoulder, not specified as traumatic (principal)

== ENCOUNTER 2019-04-20 10:40 | Emergency (ER) | payer MEDICARE ==
[~2019-04-20] VITALS: Ht 182.9 cm; Wt 90.0 kg
[2019-04-20 10:49] VITALS: Ht 182.9 cm; Wt 90.0 kg
[2019-04-20] MEDS ORDERED: HYDROCODON-ACE1 EAC7 PO (12:39)
[2019-04-20 12:53] VITALS: BP 146/89
== END 2019-04-20 12:54 | disposition home or self-care (01) ==
LOC: D.ER 10:40
DX: S20.211A Contusion of right front wall of thorax, initial encounter (principal); W18.30XA Fall on same level, unspecified, initial encounter; Y93.89 Activity, other specified; Y92.89 Other specified places as the place of occurrence of the external cause

== ENCOUNTER → 2020-03-08 09:20 | Outpatient (CLI) | payer MEDICARE ==
[2019-04-20 10:49] VITALS: BMI 26.9
[~2020-03-08 09:20] MED LIST changes: +HYDROCODON-ACE1 EAC7 PO
== END | disposition home or self-care (01) ==
LOC: D.HCCARDIO 09:20
PROVIDERS: ATTEND Internal Medicine Cardiovascular Disease
DX: I25.119 Atherosclerotic heart disease of native coronary artery with unspecified angina pectoris (principal)

== ENCOUNTER 2020-03-16 06:01 | Outpatient (CLI) | payer MEDICARE ==
[~2020-03-16] VITALS: Ht 182.9 cm; Wt 87.7 kg
--- NOTE | ~2020-03-16 | HEMODYNAMI ---
PATIENT:LÓPEZ SCHMIDT MEDICAL RECORD: [id number] : 54 LOCATION:[facility] ADMISSION DATE: 03/16/20 Generatedon:03/16/20209:25 Patient name: LÓPEZ SCHMIDT Patient #: [id number] SSN: [id number] : 1950 Date of study: 03/16/2020 Page: Of Hemodynamic Procedure Report Patient Data Patient Demographics Procedure consent was obtained First Name: LÓPEZ Gender: Male Last Name: ROXANA : 1950 [facility] Initial: AGGIE Age: 70 year(s) Patient #: [id number] Race: SSN: [id number] Additional ID: [id number] Contact details Address: [address] [place] [address] DRIVE State: [place] City: [place] Zip code: [address] Past Medical History Performed procedures and imaging results Date Procedure Procedure Results Comments 03/08/2020 Stress testing Positive->Intermediate with SPECT MPI risk Allergies Allergen Reaction Date Comments Reported Other allergy 10/04/2018 ASA Other allergy 03/16/2020 ASPIRIN Admission Admission Data Admission Date: 03/16/2020 Admission Time: 6:01 Arrival Date: 03/16/2020 Arrival Time: 0:00 Admit Source: Other Insurance Payor: Private health insurance [facility] #: [id number] Height (in.): 72 BSA: 2.1 (m2) Height (cm.): 182.88 BMI: 26.09 (kg/m2) Weight (lbs.): 192.4 Weight (kg.): 87.27 Lab Results Lab Result Date: 03/16/2020 Lab Result Time: 0:00 Biochemistry Name Units Result Min Max BUN mg/dl 12 --(-*--)-- 7 18 Creatinine mg/dl 0.8 --(-*--)-- 0.6 1.3 eGFR ml/min 90 --(*---)-- 90 120 NONAFRICAN CBC Name Units Result Min Max Hematocrit % 54.9 --(----)*- 42 54 Hemoglobin g/dl 19.4 --(----)-* 13.5 17.5 Procedure Procedure Types Cath Procedure Diagnostic Procedure [facility] w/Coronaries Sedation Charges Moderate Sedation up to 15 minutes Procedure Description Procedure Date Procedure Date: 03/16/2020 Procedure Start Time: 9:02 Procedure End Time: 9:21 Procedure Staff Name Function Teja Parker MD Performing Physician Irma Kuo RT Scrub Alem Cobb RT Monitor Audrey Marsh RN Nurse Procedure Data Cath Procedure Fluoroscopy Diagnostic fluoroscopy Total fluoroscopy Time: 3 time: 3 min min Diagnostic fluoroscopy Total fluoroscopy dose: 551 dose: 551 mGy mGy Contrast Material Contrast Material Type Amount (ml) Isovue 300 85 Entry Location Entry Primary Successful Side Size Upsize Upsize Entry Closure Succes sful Closure Location (Fr) 1 (Fr) 2 (Fr) Remarks Device Remarks Femoral Right 5 Fr Exoseal artery Estimated blood loss: 5 ml Diagnostic catheters Device Type Used For End Catheter Placement MULTIPACK JL 4.0 5Fr Left Coronary catheter Angiography DIAGNOSTIC AR MOD 5Fr Multi-vessel Catheter ([id number]) Angiography DIAGNOSTIC IM 5Fr SVG Angiography catheter ([id number]) MULTIPACK Pigtail 5 Fr LV Angiography catheter Procedure Complications No complications Procedure Medications Medication Administration Route Dosage 0.9% NaCl I.V. 100 ml/hr Lidocaine 2% added to field 20 Heparin Flush Bag added to field 2 bags (1000units/500ml NS) Oxygen NC 2 l/min Versed I.V. 1 mg Fentanyl I.V. 50 mcg Versed I.V. 1 mg Fentanyl I.V. 50 mcg Versed I.V. 1 mg Versed I.V. 0.5 mg Hemodynamics Rest BSA: 2.1 (m2) O2 Consumption: Estimated: 229.83 (ml/min) O2 Consumption indexed: Estimated:109.44 (ml/min/m) Heart Rate: 52 (bpm) Pressure Samples Time Site Value (mmHg) Purpose Heart Use Rate(bpm) 9:16 LV 125/9,20 Snapshot 52 9:17 AO 113/58(80) Pullback 40 9:17 LV 132/10,31 Pullback 40 Gradients Valve Time Site 1 Site 2 Mean SEP/DFP Peak To Heart Use (mmHg) (sec/min) Peak Rate (mmHg) (bpm) Aortic 9:17 LV AO 10 14 19 40 132/10,31 113/58(80) Calculations Valve P-P Mean Valve Index Valve Source Name Gradient Area Flow (cm2) Aortic 19 10 19 10 Snapshots Pre Cath Intra NCS Post Cath Vital Signs Time Heart Resp SPO2 etCO2 NIBP (mmHg) Rhythm Pain Sedation Rate (ipm) (%) (mmHg) Status Level (bpm) 8:54:00 81 18 100 32.8 146/85(102) NSR 0 (11) 10(A) , No pain 8:58:59 43 26 99 23.9 Measuring NSR 0 (11) 10(A) , No pain 8:59:03 52 22 98 23.9 143/78(106) NSR 0 (11) 10(A) , No pain 9:03:23 69 22 97 28.4 136/86(107) NSR 0 (11) 9(A) , No pain 9:08:22 89 22 98 14.1 Measuring NSR 0 (11) 9(A) , No pain 9:08:26 95 21 98 11.9 128/69(83) NSR 0 (11) 9(A) , No pain 9:12:44 57 22 96 28.3 118/69(96) NSR 0 (11) 9(A) , No pain 9:16:58 51 16 97 12.7 122/71(91) NSR 0 (11) 9(A) , No pain 9:21:12 53 10 98 30.6 133/76(109) NSR 0 (11) 10(A) , No pain Medications Time Medication Route Dose Verified Delivered Reason Notes Effe ctiveness by by 8:53:10 0.9% NaCl I.V. 100 Audrey Audrey used for ml/hr Salma Salma stone derrickman and rigger RN 8:53:24 Lidocaine 2% added 20ml Teja Audrey for local to vial Keith TODD Salma anesthetic field RN 8:53:37 Heparin Flush added 2 Teja Audrey used for Bag to bags Keith Marsh procedure (1000units/500ml field RN NS) 8:53:47 Oxygen NC 2 Teja Audrey for low 02 l/min Keith Marsh sats RN 9:01:37 Versed I.V. 1 mg Teja Audrey for Keith Nathor sedation RN 9:01:47 Fentanyl I.V. 50 Teja Audrey for mcg Keith Nathor sedation RN 9:05:28 Versed I.V. 1 mg Teja Audrey for Keith Nathor sedation RN 9:05:33 Fentanyl I.V. 50 Teja Audrey for mcg Keith Nathor sedation RN 9:10:19 Versed I.V. 1 mg Teja Audrey for Keith Nathor sedation RN 9:15:22 Versed I.V. 0.5 Teja Audrey for mg Keith Nathor sedation head librarian Log Time Note 8:29:30 Informed consent obtained and on chart 8:31:58 Admit Source: Other 8:32:21 Procedure Status Elective Heart Cath (OP). 8:32:23 Time tracking: Regular hours (M-F 7:00 - 5:00) 8:32:27 Plan of Care:Hemodynamics will remain stable., Cardiac rhythm will remain stable., Comfort level will be maintained., Respiratory function will remain adequate., Patient/ family verbilizes understanding of procedure., Procedure tolerated without complication., Recovers from procedure without complications.. 8:32:49 Stress Test: yes; abnormal INFERIOR, APICAL 8:32:54 Lab results completed and on chart. 8:34:10 Lab Result : BUN 12 mg/dl 8:34:10 Lab Result : Hemoglobin 19.4 g/dl 8:34:10 Lab Result : Hematocrit 54.9 % 8:34:10 Lab Result : Creatinine 0.8 mg/dl 8:34:10 Lab Result : eGFR NONAFRICAN 90 ml/min 8:34:19 Arrival Date: 03/16/2020 12:00:00 AM 8:34:21 Patient Height : 72 inches 8:34:26 Patient Weight : 192.4 lbs 8:34:32 Insurance Payor : Private health insurance 8:34:54 Alarms reviewed by R. N. 8:34:54 Sharps counted by scrub and verified by R.N. 8:35:31 H&P Date Dictated: 03/01/2020 Within 30 days and on chart.. 8:35:32 Pre-procedure instructions explained to patient. 8:35:32 Pre-op teaching completed and patient verbalized understanding. 8:35:35 Family in waiting room. 8:35:36 Patient NPO since Midnight. 8:35:50 Patient allergic to Other allergyASPIRIN 8:36:35 Alem Cobb RT(R) sent for patient. Start room use. 8:43:04 Risk of Mortality: 0.1 8:43:06 Risk of blood transfusion: 0.1 8:43:09 Risk of CRYSTAL: 1.1 8:43:37 Patient received from Pre/Post Procedure Room to CCL 1 Alert and oriented. Tansferred to table in Supine position. 8:43:38 Warm blankets applied, and larry hugger turned on for patient comfort. 8:43:38 Correct patient and procedure confirmed by team. 8:43:39 ECG and BP/O2 sat monitors applied to patient. 8:52:52 Vital chart was started 8:53:10 0.9% NaCl 100 ml/hr I.V. was administered by Audrey Marsh RN; used for procedure; Verbal order read back and verified. 8:53:14 Is the patient allergic to Iodine/contrast media? No. 8:53:14 Was the patient premedicated? Yes 8:53:16 Is patient on blood thinner?No 8:53:17 Patient diabetic? No. 8:53:24 Lidocaine 2% 20ml vial added to field was administered by Audrey Marsh RN; for local anesthetic; Verbal order read back and verified. 8:53:37 Heparin Flush Bag (1000units/500ml NS) 2 bags added to field was administered by Audrey Marsh RN; used for procedure; Verbal order read back and verified. 8:53:47 Oxygen 2 l/min NC was administered by Audrey Marsh RN; for low 02 sats; Verbal order read back and verified. 8:55:55 Previous problem with sedation/anesthesia? No ? 8:55:58 Snore? Yes 8:55:59 Sleep apnea? No 8:56:00 Deviated septum? No 8:56:01 Opens mouth fully? Yes 8:56:01 Sticks out tongue? Yes 8:56:03 Airway obstruction? No ? 8:56:06 Dentures? No ? 8:56:09 Pre procedure: right dorsailis pedis pulse 2+ Normal; easily identifiable; not easily obliterated 8:56:12 Pre procedure: left dorsailis pedis pulse 2+ Normal; easily identifiable; not easily obliterated 8:56:15 Patient pain scale 0/10 ?. 8:56:20 Physician arrived 8:56:21 --------ALL STOP TIME OUT------ 8:56:22 Final Timeout: patient, procedure, and site verified with staff and physician. All members of the team are in agreement. 8:56:24 Right groin site verified by team. 8:56:28 Fire Safety Assessment: A--An alcohol-based skin anteseptic being used preoperatively., C--Open oxygen or nitrous oxide is being used., D--An ESU, laser, or fiber-optic light is being used. 8:56:31 Physical assessment completed. ASA score P 2 - A patient with mild systemic disease as per Teja Parker MD. 8:56:46 1) 90+ Normal kidney functon but urine findings or structural abnormalities or genetic trait point to kidney disease. 8:56:49 Maximum allowable contrast dose (3.7 X eGFR X 0.75)250 ml. 8:56:53 Sedation plan: IV Moderate Sedation Medication:Versed, Fentanyl 8:57:01 Procedure started. 8:57:01 Full Disclosure recording started 9:01:37 Versed 1 mg I.V. was administered by Audrey Marsh RN; for sedation; Verbal order read back and verified. 9:01:47 Fentanyl 50 mcg I.V. was administered by Audrey Marsh RN; for sedation; Verbal order read back and verified. 9:02:19 Local anesthetic to right femoral artery with Lidocaine 2% by Teja Parker MD.INITIAL ACCESS ONLY 9:05:28 Versed 1 mg I.V. was administered by Audrey Marsh RN; for sedation; Verbal order read back and verified. 9:05:33 Fentanyl 50 mcg I.V. was administered by Audrey Marsh RN; for sedation; Verbal order read back and verified. 9:06:43 A 5 Fr sheath was inserted into the Right Femoral artery 9:06:51 Use device set Femoral Dx 9:06:52 ACIST Syringe (13129) opened to sterile field. 9:06:52 Bag Decanter (2002S) opened to sterile field. 9:06:53 Medline Cath Pack ([id number]) opened to sterile field. 9:06:54 ACIST Hand Control (16590) opened to sterile field. 9:06:54 ACIST Manifold (54799) opened to sterile field. 9:06:54 DIAGNOSTIC Multipack 5Fr catheter set ([id number]) opened to sterile field. 9:06:55 Tegaderm 4 x 4 (1626W) opened to sterile field. 9:06:56 SHEATH 5FR [place] ([id number]) opened to sterile field. 9:06:57 EMERALD Guide Wire (502-217) opened to sterile field. 9:07:07 A MULTIPACK JL 4.0 5Fr catheter was advanced over the wire and used for Left Coronary Angiography. 9:08:07 LCA angiography performed. 9:08:11 Injector settings: Ml/sec: 3, Volume: 6, 9:09:00 Catheter removed. 9:10:05 A DIAGNOSTIC AR MOD 5Fr Catheter ([id number]) was advanced over the wire and used for Multi-vessel Angiography. 9:10:19 Versed 1 mg I.V. was administered by Audrey Marsh RN; for sedation; Verbal order read back and verified. 9:10:56 RCA angiography performed. 9:10:59 Injector settings: Ml/sec: 3, Volume: 6, 9:11:30 SVG to RCA angiography performed. 9:12:16 SVG to OM occluded. 9:14:23 Catheter removed. 9:14:27 A DIAGNOSTIC IM 5Fr catheter ([id number]) was advanced over the wire and used for SVG Angiography. 9:14:31 MARS angiography performed. 9:15:22 Versed 0.5 mg I.V. was administered by Audrey Marsh RN; for sedation; Verbal order read back and verified. 9:16:17 Injector settings: Ml/sec: 3, Volume: 6, 9:16:18 Catheter removed. 9:16:26 A MULTIPACK Pigtail 5 Fr catheter was advanced over the wire and used for LV Angiography. 9:16:35 LV hemodynamics recorded. 9:16:36 LV gram done using ALVAREZ 9:16:39 Injector settings: Ml/sec: 5, Volume: 15, 9:16:51 EF : 35 % 9:18:53 Catheter removed. 9:18:56 EXOSEAL 5Fr (EX500) opened to sterile field. 9:19:07 Sheath removed intact; hemostasis achieved with Exoseal to the Right Femoral artery. 9:19:15 Procedure ended.(Physican Out) 9:19:42 Fluoroscopy time 03.00 minutes. 9:19:46 Flurop Dose total: 551 9:19:46 Fluoroscopy dose: 551 mGy 9:19:53 Dose Area Product 20767 mGy/cm. 9:20:07 Contrast amount:Isovue 300 85ml. 9:20:09 Maximum allowable dose exceeded? No. 9:20:10 Sharps counted by scrub and verified by R.N. 9:20:11 Insertion/operative site no bleeding no hematoma. 9:20:13 Post-op/insertion site Right Femoral artery dressed using a 4 x 4 and Tegaderm. 9:20:15 Post Procedure Pulses reassessed and unchanged 9:20:18 Post procedure rhythm: unchanged. 9:20:21 Estimated blood loss: 5 ml 9:20:22 Post procedure instruction explained to patient.Patient verbalizes understanding. 9:20:23 Patient needs reinforcement of post procedure teaching. 9:20:47 Procedure type changed to Cath procedure, Diagnostic procedure, LHC, [facility] w/Coronaries, Sedation Charges, Moderate Sedation up to 15 minutes 9:20:59 Procedure and supply charges have been captured, reviewed, submitted and are correct. 9:21:08 Procedure Complication : No complications 9:21:11 Vital chart was stopped 9:21:14 [facility] Findings: MVD- MD will discuss options w/ pt 9:21:16 Operative report dictated upon procedure completion. 9:21:17 See physician's report for complete and final results. 9:21:18 Report given to Pre/Post Procedure Room. 9:21:21 Patient transfered to Pre/Post Procedure Room with Stretcher. 9:21:23 Procedure ended. 9:21:23 Full Disclosure recording stopped 9:21:28 End room use (Document Last) 9:23:59 End room use (Document Last) 9:24:45 End room use (Document Last) Device Usage Item Name Manufacture Quantity Catalog Hospital Part Current Minimal L ot# / Number Charge Number Stock Stock Serial# Code ACIST Acist 1 24692 [id number] 542279 [id number] 20 Materia (66535) Systems Inc Bag Microtek 1 2001S 342855 76091 032636 5 Decanter Medical Inc. (2001S) Medline Medline 1 [id number] 354936 35943 465091 5 Cath Pack ([id number]) ACIST Hand Acist 1 31081 805417 173045 849742 5 Control Medical (49311) Systems Inc ACIST Acist 1 00066 968129 857040 254280 5 Manifold Medical (76353) Systems Inc DIAGNOSTIC Cardinal 1 [id number] 305181 16071 475467 30 Multipack Health 5Fr catheter set ([id number]) Tegaderm 4 3M 1 1626W [id number] 378866 703523 5 x 4 (1626W) SHEATH 5FR Terumo 1 ZUN350 618791 471130 225295 5 [place] ([id number]) EMERALD Cardinal 1 502-455 494365 004325 213329 5 Guide Wire Health (502-455) MULTIPACK Cardinal 1 165637 5 JL 4.0 5Fr Health catheter DIAGNOSTIC Cardinal 1 [id number] 157107 039127 707860 15 AR MOD 5Fr Health Catheter (840459T) DIAGNOSTIC Cardinal 1 [id number] 127152 247027 859641 5 IM 5Fr Health catheter ([id number]) MULTIPACK Cardinal 1 [id number] 5 Pigtail 5 Health Fr catheter EXOSEAL 5Fr Cardinal 1 EX500 097591 316221 228511 10 (EX500) Health Signature Audit [place] Stage Time Signature Unsigned Intra-Procedure 03/16/2020 Audrey 9:23:59 AM Salma AMES Intra-Procedure 03/16/2020 Alem Cobb 9:24:45 AM RT(R) Intra-Procedure 03/16/2020 Teja Parker MD 9:25:11 AM [facility] [address] [place] [address]
[2020-03-16] MEDS ORDERED: TOPROL XL25 MG PO (06:26)
[2020-03-16] MEDS ORDERED: LEXAPRO20 MG PO (06:26)
[2020-03-16] MEDS ORDERED: DIOVAN40 MG PO (06:27)
[2020-03-16 06:38] VITALS: BP 117/77; Ht 182.9 cm; Wt 87.7 kg
[2020-03-16 06:46] LABS: BASOPHILS 0.4 % (0-2); EOSINOPHILS 2.3 % (0-7); HEMATOCRIT 54.9 % (42.0-54.0); HEMOGLOBIN 19.4 g/dL (13.5-17.5); IMMATURE GRANULOCYTES 0.3 % (0-5); LYMPHOCYTES 26.1 % (15-50); MCH 33.7 pg (26.0-34.0); MCHC 35.3 g/dL (31.0-37.0); MCV 95.3 fL (80.0-100.0); MEAN PLATELET VOLUME 9.7 fL (7.4-10.4); NEUTROPHILS 60.9 % (40-80); PLATELET COUNT 167 10x3/uL (130-400); RBC 5.76 10x6/uL (4.20-6.10); RDW 13.8 % (11.5-14.5); WBC 7.3 10x3/uL (4.8-10.8)
[2020-03-16 07:10] LABS: ALT (SGPT) 27 U/L (10-68); CHOL - HDL RATIO 2.4 ratio (2.3-4.9); CHOLESTEROL, TOTAL 103 mg/dL (0-200); HDL CHOLESTEROL 43 mg/dL (32-96); LDL CHOLESTEROL 38 mg/dL (0-100); LDL-HDL RATIO 0.9 ratio (1.5-3.5); TRIGLYCERIDE 110 mg/dL (30-200)
[2020-03-16 07:22] LABS: CALC OSMOLALITY 278 mosm/kg (275-300); CALCIUM 8.9 mg/dL (8.5-10.1); CARBON DIOXIDE 24.9 mmol/L (21.0-32.0); CHLORIDE - SERUM 105 mmol/L (98-107); CREATININE - SERUM 0.8 mg/dL (0.6-1.3); GLUCOSE 108 mg/dL (74-106); POTASSIUM - SERUM 4.4 mmol/L (3.5-5.1); SODIUM 139 mmol/L (136-145); UREA NITROGEN 12 mg/dL (7-18); eGFR NON AFRICAN AMERICAN > 90 mL/min (90-120)
--- NOTE | 2020-03-16 09:30 | NUR ---
PT REC'D TO ROOM 9 VIA STRETCHER FROM HELPER [employer]. MONITORS ESTAB. PT DROWSY, AT BS. SEE EXPANSION ENVELOPE MAKER HAND. ALARMS ON AND C/L IN REACH.
--- NOTE | 2020-03-16 09:45 | NUR ---
R GROIN SITE SOFT, C/D/I, NO S/S BLEEDING OR HEMATOMA. HR 49 - SB, B/P 111/63. PULSES PALP. PT AWAKENS EASILY, DENIES PAIN OR NEEDS.
--- NOTE | 2020-03-16 10:15 | NUR ---
R GROIN SITE SOFT, NO S/S BLEEDING OR HEMATOMA. PULSES PALP. VSS. AT BS, PT ORIENTED AND ALERT AT THIS TIME. ALARMS ON AND C/L IN REACH.
--- NOTE | 2020-03-16 10:45 | NUR ---
R GROIN SITE SOFT, C/D/I. HOB ELEVATED, SANDWICH TRAY PROVIDED. VSS. C/L IN REACH.
--- NOTE | 2020-03-16 11:08 | NUR ---
DR. CAPUTO IN TO TALK TO PT AND . PT ATE ALL OF SANDWICH, NO N/V. R GROIN SITE SOFT, NO S/S BLEEDING OR HEMATOMA.
--- NOTE | 2020-03-16 11:30 | NUR ---
R GROIN SITE SOFT, C/D/I, NO S/S BLEEDING OR HEMATOMA. PIV D/C'D INTACT - DSG APPLIED. PT ALLOWED UP TO GET DRESSED, ASSISTING.
--- NOTE | 2020-03-16 11:40 | NUR ---
PT UP TO BR INDEPENDENTLY. ALL D/C INSTRUCTIONS REVIEWED WITH PT AND HIS , UNDERSTANDING VERBALIZED.
--- NOTE | 2020-03-16 11:45 | NUR ---
PT D/C'D VIA WC TO PRIVATE VEHICLE WITH ALL BELONGINGS AND PAPERWORK.
== END 2020-03-16 11:45 | disposition home or self-care (01) ==
LOC: D.CATH 06:01
PROVIDERS: ATTEND Internal Medicine Cardiovascular Disease
DX: I25.119 Atherosclerotic heart disease of native coronary artery with unspecified angina pectoris (principal); R94.39 Abnormal result of other cardiovascular function study; I10 Essential (primary) hypertension; R07.9 Chest pain, unspecified; I25.5 Ischemic cardiomyopathy; Z72.0 Tobacco use